=== PATIENT | male | born 1990 | race African-American/Black ===

== ENCOUNTER 2016-12-03 23:06 | Emergency (ER) | payer OTHER ==
[~2016-12-03] VITALS: Ht 177.8 cm; Wt 100.2 kg
[2016-12-03 23:08] VITALS: TEMP 36.8; Ht 177.8 cm; Wt 100.2 kg
[2016-12-03 23:21] VITALS: O2SAT 98
--- NOTE | 2016-12-03 23:35 | EMERGENCY ROOM VISIT NOTE ---
History Report prepared by Grace: Seamus Dye Under the Supervision of: Gerda AlexanderO. First contact with patient: 23:18 Chief Complaint: CHEST PAIN Stated Complaint: CHEST PAIN, SQUEEZING, SOB History of Present Illness The patient is a 26 year old male who presents to the Emergency Room with complaints of constant chest pain that started around 2200. He rates his pain as a 3/10 in severity and describes it as a squeezing sensation. The patient states that he was at work earlier tonight when he suddenly started to experience mid chest pain, calor, and shortness of breath. He reports that his symptoms were severe and he could not talk due to the severity. He states that he returned home after work and reported his symptoms to his and she brought him to the ED. The patient states that the pain is still present, but admits that it is not as severe. He admits that he has had heartburn in the past , but states that his current symptoms are not similar to his heartburn symptoms. He states that he recently aspirated in a pool four days ago. The patient also reports that he has been experiencing right ear irritation and states that it has been draining clear fluid. He states that he is a current smoker. The patient reports that he has traveled recently to [facility] via car. The patient denies taking any medication, any radiation of pain, dizziness , lightheadedness, nausea, fevers, chills, urinary symptoms, and family history of similar symptoms. Source of History: patient Onset: 2200 Position: chest Symptom Intensity: 3/10 Quality: other (squeezing) Timing: constant Associated Symptoms: + SOB, No fevers, No chills, No diaphoresis, No neck pain, No nausea, No abdominal pain, No back pain, No urinary symptoms Review of Systems See HPI for pertinent positives & negatives. A total of 10 systems reviewed and were otherwise negative. Past Medical & Surgical Medical Problems: (1) Hernia Family History Patient reports no known family medical history. Social History Smoking Status: Current Every Day Smoker Smokeless Tobacco Use: No Alcohol Use: none Drug Use: none Marital Status: Housing Status: lives with family Occupation Status: employed Current/Historical Medications No Active Prescriptions or Reported Meds Allergies Coded Allergies: No Known Allergies (Unverified , 12/03/16) Physical Exam Vital Signs Date Time Temp Pulse Resp B/P (MAP) Pulse Ox O2 Delivery O2 Flow Rate FiO2 12/04/16 03:10 62 18 121/71 97 12/04/16 02:07 67 16 132/85 99 Room Air 12/04/16 01:07 64 16 128/76 98 Room Air 12/04/16 00:22 79 16 115/77 98 Room Air 12/03/16 23:35 71 12/03/16 23:21 98 Room Air 12/03/16 23:17 98 Room Air 12/03/16 23:08 36.8 82 20 138/92 94 Room Air Physical Exam GENERAL: alert, well appearing, well nourished, no distress, non-toxic EYE EXAM: normal conjunctiva, PERRL and EOM's grossly intact OROPHARYNX: no exudate, no erythema, lips, buccal mucosa, and tongue normal and mucous membranes are moist NECK: supple, no nuchal rigidity, no adenopathy, non-tender LUNGS: Clear to auscultation. Normal chest wall mechanics HEART: no murmurs, S1 normal and S2 normal ABDOMEN: abdomen soft, non-tender, normo-active bowel sounds, no masses, no rebound or guarding. BACK: Back is symmetrical on inspection and there is no deformity, no midline tenderness, no CVA tenderness. SKIN: no rashes and no bruising UPPER EXTREMITIES: upper extremities are grossly normal. LOWER EXTREMITIES: No pitting edema. NEURO EXAM: Normal sensorium, cranial nerves II-XII grossly intact, normal speech, no gross weakness of arms, no gross weakness of legs. Gross sensation intact. Medical Decision & Procedures ER Provider Diagnostic Interpretation: Radiology results have been interpreted by the radiologist and reviewed by me. Chest Xray: No cardiomegaly. No effusion. Mo wide mediastinum. No focal infiltrate. CTA Chest: No filling defect in the main pulmonary trunk or right and left main pulmonary arteries to suggest a central pulmonary embolus. However, detailed evaluation of segmental and subsegmental branches is limited by respiratory motion resulting in volume averaging artifact. No gross evidence for a pulmonary embolus, but difficult out rule out given the artifact. No consolidation or effusion. Radiologist: Martin Mckeon M.D. Laboratory Results 12/03/16 23:20 Red Blood Count 5.09, Mean Corpuscular Volume 85.1, Mean Corpuscular Hemoglobin 28.9, Mean Corpuscular Hemoglobin Concent 33.9, Mean Platelet Volume 9.8, Neutrophils (%) (Auto) 43.0, Lymphocytes (%) (Auto) 43.3, Monocytes (%) (Auto) 8.8, Eosinophils (%) (Auto) 4.2, Basophils (%) (Auto) 0.5, Neutrophils # (Auto) 3.80, Lymphocytes # (Auto) 3.82, Monocytes # (Auto) 0.78, Eosinophils # (Auto) 0.37, Basophils # (Auto) 0.04 12/03/16 23:20 Test 12/03/16 23:20 12/04/16 01:05 12/04/16 02:30 White Blood Count 8.83 K/uL (4.8-10.8) Red Blood Count 5.09 M/uL (4.7-6.1) Hemoglobin 14.7 g/dL (14.0-18.0) Hematocrit 43.3 % (42-52) Mean Corpuscular Volume 85.1 fL (80-100) Mean Corpuscular Hemoglobin 28.9 pg (25-34) Mean Corpuscular Hemoglobin Concent 33.9 g/dl (32-36) Platelet Count 277 K/uL (130-400) Mean Platelet Volume 9.8 fL (7.4-10.4) Neutrophils (%) (Auto) 43.0 % Lymphocytes (%) (Auto) 43.3 % Monocytes (%) (Auto) 8.8 % Eosinophils (%) (Auto) 4.2 % Basophils (%) (Auto) 0.5 % Neutrophils # (Auto) 3.80 K/uL (1.4-6.5) Lymphocytes # (Auto) 3.82 K/uL (1.2-3.4) Monocytes # (Auto) 0.78 K/uL (0.11-0.59) Eosinophils # (Auto) 0.37 K/uL (0-0.5) Basophils # (Auto) 0.04 K/uL (0-0.2) RDW Standard Deviation 42.6 fL (36.4-46.3) RDW Coefficient of Variation 13.8 % (11.5-14.5) Immature Granulocyte % (Auto) 0.2 % Immature Granulocyte # (Auto) 0.02 K/uL (0.00-0.02) Anion Gap 7.0 mmol/L (3-11) Est Creatinine Clear Calc Drug Dose 131.6 ml/min Estimated GFR () 119.0 Estimated GFR (Non- 102.7 BUN/Creatinine Ratio 10.9 (10-20) Calcium Level 9.6 mg/dl (8.5-10.1) Total Bilirubin 0.1 mg/dl (0.2-1) Aspartate Amino Transf (AST/SGOT) 25 U/L (15-37) Alanine Aminotransferase (ALT/SGPT) 35 U/L (12-78) Alkaline Phosphatase 72 U/L (45-117) Pro-B-Type Natriuretic Peptide 76 pg/ml (0-450) Total Protein 7.8 gm/dl (6.4-8.2) Albumin 4.2 gm/dl (3.4-5.0) Globulin 3.6 gm/dl (2.5-4.0) Albumin/Globulin Ratio 1.2 (0.9-2) Bedside D-Dimer > 450 ng/mlFEU (0-450) Troponin I < 0.015 ng/ml (0-0.045) Laboratory results per my review. Medications Administered Medications (Trade) Dose Ordered Sig/Vaishali Route Start Time Stop Time Status Last Admin Dose Admin Al Hydroxide/Mg Hydroxide (Maalox Susp) 30 ml NOW STAT PO 12/04/16 00:14 12/04/16 00:15 DC 12/04/16 00:20 30 ML Ketorolac Tromethamine (Toradol Inj) 30 mg NOW STAT IV 12/04/16 00:14 12/04/16 00:15 DC 12/04/16 00:21 30 MG Lorazepam (Ativan Inj) 0.5 mg NOW STAT IV 12/04/16 03:05 12/04/16 03:06 DC 12/04/16 03:20 0.5 MG ECG Indication: chest pain Rate (beats per minute): 76 Rhythm: normal sinus Findings: no acute ischemic change, no ectopy, other (Normal axis, Normal interval, Low voltage) ED Course 6829: The patient was evaluated in room A03. A complete history and physical exam was performed. 0014: Toradol Injection 30 mg IV, Maalox Susp 30 ml PO. 0034: I reevaluated the patient and he is resting comfortably. He admits that the pain is a little better, but reports it is still present. I updated him on his results. 0254: I reevaluated the patient and he is resting comfortably. He reports that there is still some minimal discomfort. 0305: Ativan Injection 0.5 mg IV. 0310: Upon reevaluation, the patient is feeling better. I discussed the findings and the treatment plan with the patient. He verbalizes agreement and understanding. The patient was discharged home. Medical Decision Differential diagnoses includes but is not limited to acute coronary syndrome, myocardial infarction, pericarditis, pulmonary embolus, aortic dissection, pneumonia, pneumothorax, musculoskeletal, shingles, esophageal. Patient well-appearing here despite complaints. Discussed with patient differential diagnosis. Patient aware of all labs and imaging results which were reassuring. Troponins negative 2. Agents only risk factor for heart disease is tobacco abuse, he was counseled at length at bedside regarding cessation. Discussed with patient close follow-up with his family doctor, symptoms to watch and return for, he verbalized understanding was agreeable with plan. Doubt ACS, dysrhythmias, dissection, PE, pneumonia, congestive heart failure, perforation, GI bleed, bacteremia/sepsis. Patient and related with a steady gait here, was tolerating by mouth. All questions answered bedside prior to discharge. Medication Reconcilliation Current Medication List: was personally reviewed by me Blood Pressure Screening Patient's blood pressure: Elevated blood pressure Blood pressure disposition: Elevated BP felt to be situational Impression Primary Impression: Chest pain Scribe Attestation The scribe's documentation has been prepared under my direction and personally reviewed by me in its entirety. I confirm that the note above accurately reflects all work, treatment, procedures, and medical decision making performed by me. Departure Information Dispostion Home / Self-Care Prescriptions No Active Prescriptions or Reported Meds Referrals No Doctor, Assigned (PCP) Forms HOME CARE DOCUMENTATION FORM, IMPORTANT VISIT INFORMATION Patient Instructions My [facility] Additional Instructions Please follow up with your family doctor. Please avoid any strenuous activity or heavy lifting until you're feeling better. Please continue to monitor for any new or changing symptoms. If you develop any recurrent chest pain, develop trouble breathing, vomiting, fevers, black or bloody stools, dizziness or feel as though you're going to pass out, or you have any other new concerns, please return the emergency room. Problem Qualifiers Primary Impression: Chest pain Chest pain type: unspecified Qualified Codes: R07.9 - Chest pain, unspecified
[2016-12-03 23:38] LABS: BASO % 0.5 %; BASO ABS # 0.04 K/uL (0-0.2); COMPLETE YES; EOS % 4.2 %; HEMATOCRIT 43.3 % (42-52); IG% 0.2 %; LYMPH % 43.3 %; LYMPH ABS # 3.82 K/uL (1.2-3.4); MEAN CELL VOLUME 85.1 fL (80-100); MEAN CORPUSCULAR HEMOGLOBIN 28.9 pg (25-34); MEAN CORPUSCULAR HGB CONC 33.9 g/dl (32-36); MEAN PLATELET VOLUME 9.8 fL (7.4-10.4); MONO % 8.8 %; PLATELET COUNT 277 K/uL (130-400); RED BLOOD COUNT 5.09 M/uL (4.7-6.1); WHITE BLOOD COUNT 8.83 K/uL (4.8-10.8)
[2016-12-03 23:59] LABS: ALT/SGPT 35 U/L (12-78); BLOOD UREA NITROGEN 11 mg/dl (7-18); BUN/CREATININE RATIO 10.9 (10-20); CALCIUM 9.6 mg/dl (8.5-10.1); CARBON DIOXIDE 28 mmol/L (21-32); CHLORIDE 104 mmol/L (98-107); GLUCOSE 90 mg/dl (70-99); POTASSIUM 3.7 mmol/L (3.5-5.1); SODIUM 139 mmol/L (136-145)
[2016-12-04 00:04] LABS: ALB/GLOB RATIO 1.2 (0.9-2); ALKALINE PHOSPHATASE 72 U/L (45-117); AST/SGOT 25 U/L (15-37)
[2016-12-04] MEDS ORDERED: ALUMINUM/MAGNESIUM SUSP 30 ML UDC PO STA (00:14)
[2016-12-04] MEDS ORDERED: KETOROLAC TROMETHAMINE 30 MG/ML VIAL IV STA (00:14)
[2016-12-04] MEDS ORDERED: OPTIRAY 320 IV PRN (01:45)
[2016-12-04] MEDS ORDERED: LORAZEPAM 2 MG/ML 1 ML VIAL IV STA (03:05)
[2016-12-04 03:10] VITALS: BP 121/71; PULSE 62; O2SAT 97
--- NOTE | 2016-12-04 06:30 | DIAGNOSTIC IMAGING REPORT ---
CHEST ONE VIEW PORTABLE CLINICAL HISTORY: Atypical chest pain COMPARISON STUDY: No previous studies for comparison. FINDINGS: The cardiac and mediastinal contours are normal. There is no evidence of focal pulmonary consolidation. There is no evidence of failure. No pleural effusions are visualized.[ IMPRESSION: No active disease in the chest. Electronically signed by: Callum Spencer M.D. 12/04/2016 6:29 AM Dictated Date/Time: 12/04/2016 6:28 AM
--- NOTE | 2016-12-04 06:44 | DIAGNOSTIC IMAGING REPORT ---
CT ANGIOGRAM OF THE CHEST CLINICAL HISTORY: Atypical chest pain and elevated d-dimer COMPARISON STUDY: Chest x-ray dated 12/03/2016 TECHNIQUE: Following the IV administration of 105 mL of [id number]-[id number], CT angiogram of the thorax was performed from the thoracic inlet to the lung bases utilizing the pulmonary embolus protocol. Images are reviewed in the axial, sagittal, and coronal planes. IV contrast was administered without complication. MIP imaging was performed. A dose lowering technique was utilized adhering to the principles of ALARA. CT DOSE: 396.72 mGy.cm FINDINGS: No pathologically enlarged axillary mediastinal or hilar lymph nodes were visualized. There was no evidence of thoracic aortic dilatation. There were no pulmonary artery filling defects to indicate acute pulmonary embolism. It should be noted that pulmonary arterial opacification is suboptimal, limiting evaluation of subsegmental branches. If there is a strong clinical suspicion over the presence of acute pulmonary embolism, correlation with serial leg ultrasonography is recommended No pleural effusions are visualized. Dependent groundglass opacities, are likely atelectatic. There is no lobar consolidation. IMPRESSION: 1. No CT evidence of acute pulmonary embolism 2. No evidence of focal pulmonary consolidation Electronically signed by: Callum Spencer M.D. 12/04/2016 6:43 AM Dictated Date/Time: 12/04/2016 6:39 AM
== END 2016-12-04 03:24 | disposition home or self-care (01) ==
LOC: C.EDB 23:08 → C.EDA 12-04 03:24
DX: R07.9 Chest pain, unspecified (principal); R06.02 Shortness of breath; F17.210 Nicotine dependence, cigarettes, uncomplicated